=== PATIENT | male | born 1970 | race Caucasian/White ===

== ENCOUNTER 2022-04-23 15:03 | Emergency (ER) | payer SELFPAY | END 2022-04-23 19:24 | disposition home or self-care (01) | LOC: MW.ED 15:03 | DX: I82.811 Embolism and thrombosis of superficial veins of right lower extremity (principal) | CPT/HCPCS: 93971-26-RT; 93971-RT; 99283 ==

== ENCOUNTER 2022-04-26 13:32 | Emergency (ER) | payer SELFPAY | END 2022-04-26 16:29 | disposition home or self-care (01) | LOC: MW.ED 13:32 | DX: R51.9 Headache, unspecified (principal); Z79.899 Other long term (current) drug therapy | CPT/HCPCS: 70450; 70450-26; 99282; 99284 ==